=== PATIENT | male | born 1960 | race Caucasian/White ===

== ENCOUNTER 2020-04-24 19:51 | Emergency (ER) | payer MEDICARE, OTHER ==
[~2020-04-24] VITALS: Ht 185.4 cm; Wt 96.2 kg
[2020-04-24] MEDS ORDERED: LANTUS100 UNIT/M SUBQ (20:00)
[2020-04-24] MEDS ORDERED: NOVOLOG100 UNIT/M SUBQ (20:00)
[2020-04-24 20:33] LABS: HEMATOCRIT 44.5 % (42.0-52.0); HEMOGLOBIN 15.4 gm/dL (14.0-18.0); MCH 30.3 pg (26.0-34.0); MCHC 34.7 g/dL (28.0-37.0); MCV 87.3 fL (80.0-100.0); MPV 6.1 fl. (7.2-11.1); RBC 5.09 mil/uL (4.50-6.00); RDW-CV 13.7 % (10.5-14.5)
[2020-04-24 20:42] LABS: CALCIUM 8.8 mg/dL (8.5-10.1)
[2020-04-24 20:47] LABS: ALBUMIN 3.7 g/dL (3.4-5.0); TOTAL PROTEIN 7.9 g/dL (6.4-8.2)
[2020-04-24] MEDS ORDERED: GOLYTELY PACKE1 EACH PO (21:15)
[2020-04-24 21:35] VITALS: BP 140/78
== END 2020-04-24 21:36 | disposition home or self-care (01) ==
LOC: M.ERS 19:51
PROVIDERS: Emergency Medicine Emergency Medical Services
DX: K59.00 Constipation, unspecified (principal)